=== PATIENT | female | born 1985 | race Caucasian/White ===

== ENCOUNTER 2016-05-27 02:35 | Emergency (ER) | payer OTHER ==
[~2016-05-27] VITALS: Ht 162.6 cm; Wt 85.7 kg
[~2016-05-27 02:35] MED LIST: ACET30TAB PO; COLA100C3 PO; LABE20TAB PO; MOTR200T44 PO; STUACAP PO
[2016-05-27] MEDS ORDERED: TYLE500T78 PO (02:51)
[2016-05-27] MEDS ORDERED: MOTR200T44 PO (02:52)
[2016-05-27] MEDS ORDERED: AMOX500C PO (03:45)
[2016-05-27] MEDS ORDERED: CIPRODEX AD (03:45)
[2016-05-27] MEDS ORDERED: AMOXICILLIN 500 MG CAP PO ONE (03:45)
[2016-05-27 04:03] VITALS: BP 134/65
[2016-05-27] MEDS ORDERED: CIPRODEX OTIC SUSP 7.5ML AD ONE (09:00)
== END 2016-05-27 04:13 | disposition home or self-care (01) ==
LOC: M ED 03:29
DX: H60.91 Unspecified otitis externa, right ear (principal); H66.91 Otitis media, unspecified, right ear; J30.1 Allergic rhinitis due to pollen

== ENCOUNTER 2017-10-11 21:48 | Emergency (ER) | payer OTHER | END 2017-10-12 00:12 | disposition left against medical advice (07) | LOC: M ED 21:48 | DX: Z53.21 Procedure and treatment not carried out due to patient leaving prior to being seen by health care provider (principal) ==

== ENCOUNTER 2018-10-05 10:11 | Emergency (ER) | payer OTHER, SELFPAY ==
[~2018-10-05] VITALS: Ht 165.1 cm; Wt 100.9 kg
[~2018-10-05 10:11] MED LIST changes: +ACET-716 PO; -ACET30TAB PO; +AMOX500C PO; +CIPRODEX AD; -COLA100C3 PO; +COLA100C5 PO; +SERT-155 PO; +TYLE500T78 PO
[2018-10-05] MEDS ORDERED: CLIN150C14 PO (11:29)
[2018-10-05] MEDS ORDERED: MAGICMW SSP (11:29)
[2018-10-05] MEDS ORDERED: CLINDAMYCIN 150 MG CAP PO ONE (11:30)
[2018-10-05 11:36] VITALS: BP 158/95
== END 2018-10-05 11:36 | disposition home or self-care (01) ==
LOC: M ED 10:11
DX: K04.7 Periapical abscess without sinus (principal); S02.5XXA Fracture of tooth (traumatic), initial encounter for closed fracture; X58.XXXA Exposure to other specified factors, initial encounter; Y92.89 Other specified places as the place of occurrence of the external cause; J30.89 Other allergic rhinitis; Z79.899 Other long term (current) drug therapy

== ENCOUNTER 2018-10-08 20:55 | Emergency (ER) | payer MEDICAID, SELFPAY ==
[~2018-10-08] VITALS: Ht 165.1 cm; Wt 95.5 kg
[~2018-10-08 20:55] MED LIST changes: +CLIN150C14 PO; +MAGICMW SSP
[2018-10-08] MEDS ORDERED: ISOVUE-370 76% 100ML VIAL (Q9967) As Ordered ONE (23:58)
[2018-10-09 00:15] LABS: BASO % 0.3 % (0.0-1.0); EOS # 0.1 10^3/uL (0.0-0.50); EOS % 0.8 % (0.0-3.0); HEMATOCRIT 38.5 % (36.0-47.0); HEMOGLOBIN 13.4 g/dl (12.0-15.5); LYMPH # 1.8 10^3/uL (1.5-4.5); LYMPH % 17.8 % (24.0-44.0); MEAN CORPUSCULAR HEMOGLOBIN 31.5 pg (27.0-33.0); MEAN CORPUSCULAR HGB CONC 34.8 g/dl (32.0-36.5); MEAN CORPUSCULAR VOLUME 90.4 fl (80.0-96.0); MONO # 0.4 10^3/uL (0.0-0.8); MONO % 4.4 % (0.0-5.0); NEUTROPHILS # 7.7 10^3/uL (1.8-7.7); NEUTROPHILS % 76.4 % (36.0-66.0); PLATELET COUNT, AUTOMATED 348 10^3/uL (150-450); RED BLOOD COUNT 4.26 10^6/uL (4.00-5.40); WHITE BLOOD COUNT 10.1 10^3/uL (4.0-10.0)
[2018-10-09] MEDS ORDERED: BENZOCAINE 20% GEL 9GM TUBE (ANBESOL MAX STRENGTH) TOP ONE (00:30)
[2018-10-09 03:12] VITALS: BP 179/97
--- NOTE | 2018-10-09 20:16 | REP ---
CT MAXILLOFACIAL WITH IV CONTRAST: CT maxillofacial region performed with the intravenous administration of 75 mL of Isovue-370. Sagittal and coronal reconstruction images are performed. Preliminary report provided by [facility] at te time of the exam. Orbits and globes appear unremarkable with no mass or inflammatory changes. The paranasal sinuses are clear with no mucosal thickening or air fluid levels. Visualized osseous structures are intact with no fracture or lesion. Scattered periodontal disease is noted involving several teeth. No facial soft tissue abscess or fluid collection is seen. Scattered normal sized lymph nodes are seen bilaterally in the visualized soft tissues particularly along the carotid and jugular chains. IMPRESSION: No evidence of lymphadenopathy or abscess. Scattered periodontal disease involving the teeth. Electronically Signed by Albert Cody MD 10/11/2018 10:52 A
== END 2018-10-09 03:13 | disposition home or self-care (01) ==
LOC: M ED 20:55
DX: K05.20 Aggressive periodontitis, unspecified (principal); K02.9 Dental caries, unspecified; R22.0 Localized swelling, mass and lump, head; I10 Essential (primary) hypertension; Z87.891 Personal history of nicotine dependence; J30.1 Allergic rhinitis due to pollen; Z79.899 Other long term (current) drug therapy; Z79.2 Long term (current) use of antibiotics
CPT/HCPCS: 70487; 80047; 85025; 99284; Q9967

== ENCOUNTER → 2018-12-25 | Outpatient (REF) | payer OTHER ==
[~2018-12-25] MED LIST changes: -SERT-155 PO; +SERT50TA29 PO
[2018-12-25 13:48] LABS: BASO % 0.5 % (0.0-1.0); EOS # 0.1 10^3/uL (0.0-0.5); EOS % 2.2 % (0.0-3.0); HEMATOCRIT 37.1 % (36.0-47.0); HEMOGLOBIN 12.7 g/dl (12.0-15.5); LYMPH # 1.8 10^3/uL (1.5-5.0); LYMPH % 31.6 % (24.0-44.0); MEAN CORPUSCULAR HEMOGLOBIN 31.4 pg (27.0-33.0); MEAN CORPUSCULAR HGB CONC 34.2 g/dl (32.0-36.5); MEAN CORPUSCULAR VOLUME 91.8 fl (80.0-96.0); MONO # 0.4 10^3/uL (0.0-0.8); MONO % 7.6 % (0.0-5.0); NEUTROPHILS # 3.4 10^3/uL (1.5-8.5); NEUTROPHILS % 57.8 % (36.0-66.0); PLATELET COUNT, AUTOMATED 297 10^3/uL (150-450); RED BLOOD COUNT 4.04 10^6/uL (4.00-5.40); WHITE BLOOD COUNT 5.8 10^3/uL (4.0-10.0)
[2018-12-25 14:23] LABS: ALBUMIN 3.9 GM/DL (3.2-5.2); ALT/SGPT 63 U/L (12-78); BILIRUBIN,TOTAL 0.4 MG/DL (0.2-1.0); BLOOD UREA NITROGEN 14 MG/DL (7-18); CALCIUM LEVEL 8.8 MG/DL (8.5-10.1); CARBON DIOXIDE LEVEL 26 MEQ/L (21-32); CHLORIDE LEVEL 107 MEQ/L (98-107); CHOLESTEROL LEVEL 155 MG/DL (<200); CREATININE FOR GFR 0.72 MG/DL (0.55-1.30); GLOMERULAR FILTRATION RATE > 60.0 (>60); GLUCOSE, FASTING 93 MG/DL (70-100); HDL CHOLESTEROL 42 MG/DL (>40); LDL CHOLESTEROL 87 MG/DL (<100); NON-HDL-C 113 MG/DL; SODIUM LEVEL 139 MEQ/L (136-145); TOTAL PROTEIN 7.1 GM/DL (6.4-8.2); TRIGLYCERIDES LEVEL 128 MG/DL (<150)
[2018-12-25 14:34] LABS: HEMOGLOBIN A1c 4.8 %
== END ==
LOC: M SFHCPLAZ 11:23
PROVIDERS: ATTEND Physician Assistant Medical
DX: Z13.220 Encounter for screening for lipoid disorders (principal); F41.8 Other specified anxiety disorders; J45.909 Unspecified asthma, uncomplicated; Z68.36 Body mass index [BMI] 36.0-36.9, adult

== ENCOUNTER → 2019-03-08 | Outpatient (REF) | payer OTHER ==
[2019-03-08 21:38] LABS: AMORPHOUS SEDIMENT MODERATE (NEGATIVE); APPEARANCE, URINE TURBID (CLEAR); BACTERIA, URINE AUTO NEGATIVE (NEGATIVE); BILIRUBIN, URINE AUTO NEGATIVE (NEGATIVE); BLOOD, URINE BLOOD NEGATIVE (NEGATIVE); COLOR, URINE YELLOW (YELLOW); GLUCOSE, URINE (UA) AUTO NEGATIVE (NEGATIVE); KETONE, URINE AUTO TRACE mg/dL (NEGATIVE); LEUKOCYTE ESTERASE, URINE AUTO NEGATIVE (NEGATIVE); MUCUS, URINE LARGE (NEGATIVE); NITRITE, URINE AUTO NEGATIVE (NEGATIVE); PROTEIN, URINE AUTO 1+ mg/dL (NEGATIVE); RBC, URINE AUTO 0 /HPF (0-3); SPECIFIC GRAVITY URINE AUTO 1.034 (1.002-1.035); SQUAMOUS EPITHELIAL CELL UR AU 21 /HPF (0-6); UROBILINOGEN, URINE AUTO 0.2 mg/dL (0.0-2.0); WBC, URINE AUTO 2 /HPF (0-3)
== END ==
LOC: M LAB REF 09:11
PROVIDERS: ATTEND Nurse Practitioner Family
DX: R30.0 Dysuria (principal)